=== PATIENT | female | born 1980 | race American Indian/Alaskan Native ===

== ENCOUNTER 2024-10-29 15:50 | Emergency (ER) | payer MEDICAID ==
[2024-10-29] MEDS: Acetaminophen 500 MG Tab PO ONE (16:17)
[2024-10-29] MEDS ORDERED: Lidocaine 1% 30 ML SDV INJECT ONE (16:23)
[2024-10-29] MEDS ORDERED: Bacitracin Oint 1 GM U/D Packet TOP ONE (16:36)
== END 2024-10-29 17:00 | disposition home or self-care (01) ==
LOC: DL.ED 15:50
DX: S01.111A Laceration without foreign body of right eyelid and periocular area, initial encounter (principal); W01.198A Fall on same level from slipping, tripping and stumbling with subsequent striking against other object, initial encounter
CPT/HCPCS: 12013; 99283; A9270-GY